=== PATIENT | female | born 1950 | race Caucasian/White ===

== ENCOUNTER → 2017-01-04 | Outpatient (CLI) | payer MEDICARE, BC ==
[~2017-01-04] MED LIST: AROM25TA PO; ULTR50TA5 PO; ZOFR4TAB PO
[2017-01-04 13:36] LABS: AUTOMATED NEUTROPHIL # 4.7 TH/MM3 (1.8-7.7); BASOPHIL % 0.5 % (0.0-2.0); EOSINOPHIL % 0.7 % (0.0-4.0); HEMATOCRIT 38.8 % (35.0-46.0); HEMO FLAGS DIFF FINAL; LYMPHOCYTE # 1.4 TH/MM3 (1.0-4.8); MEAN CORPUSCULAR HEMOGLOBIN 31.4 PG (27.0-34.0); MEAN CORPUSCULAR HGB CONC 33.7 % (32.0-36.0); MONO % 5.6 % (0.0-8.0); NEUT % 71.2 % (16.0-70.0); PLATELET COUNT 245 TH/MM3 (150-450); RED BLOOD COUNT 4.17 MIL/MM3 (4.00-5.30); RED CELL DISTRIBUTION WIDTH 12.9 % (11.6-17.2); WHITE BLOOD COUNT 6.6 TH/MM3 (4.0-11.0)
[2017-01-04 13:46] LABS: APTT (PATIENT) 27.3 SEC (24.3-30.1); PROTHROMBIN TIME - PATIENT 10.7 SEC (9.8-11.6)
[2017-01-04 14:09] LABS: ANION GAP 8 MEQ/L (5-15); AST (GOT) 18 U/L (15-37); BLOOD UREA NITROGEN 15 MG/DL (7-18); CHLORIDE 103 MEQ/L (98-107); GLOMERULAR FILTRATION RATE 90 ML/MIN (>89); GLUCOSE,FASTING 84 MG/DL (74-99); SODIUM (NA) 139 MEQ/L (136-145)
[2017-01-04 14:16] LABS: ALKALINE PHOSPHATASE 68 U/L (45-117); ALT (GPT) 26 U/L (10-53); BETA HCG TUMOR MARKER 2 MIU/ML (0-5); TOTAL BILIRUBIN ADULT 0.8 MG/DL (0.2-1.0)
--- NOTE | 2017-01-05 11:52 | EKG ---
Date Performed: 01/04/2017 Time Performed: 13:26:34 PTAGE: 66 years EKG: Sinus rhythm POSSIBLE RIGHT VENTRICULAR CONDUCTION DELAY BORDERLINE ECG NO PREVIOUS TRACING DOCTOR: Surinder Farooq Interpretating Date/Time 01/05/2017 11:49:42
== END ==
LOC: CPRE 12:23
PROVIDERS: ATTEND Obstetrics & Gynecology Gynecologic Oncology
DX: Z01.810 Encounter for preprocedural cardiovascular examination (principal); Z01.811 Encounter for preprocedural respiratory examination; Z01.812 Encounter for preprocedural laboratory examination; R19.09 Other intra-abdominal and pelvic swelling, mass and lump; R94.31 Abnormal electrocardiogram [ECG] [EKG]
CPT/HCPCS: 36415; 80053; 82378; 84702; 85025; 85610; 85730; 93005

== ENCOUNTER 2017-01-11 09:45 | Observation (INO) | payer MEDICARE, BC ==
[~2017-01-11] VITALS: Ht 157.5 cm; Wt 55.3 kg
[2017-01-11] MEDS ORDERED: ZOFR4TAB PO (10:42)
[2017-01-11] MEDS ORDERED: AROM25TA PO (10:46)
[2017-01-11] MEDS ORDERED: HEPARIN SODIUM - SQ 10,000 UNITS/ML VIAL ONE (11:03)
[2017-01-11] MEDS ORDERED: SODIUM CHLORIDE 0.9% INJ 100 ML ONE (11:03)
[2017-01-11] MEDS ORDERED: ceFAZolin INJ 1,000 MG VIAL ONE (11:03)
[2017-01-11] MEDS ORDERED: HEPARIN SODIUM - SQ 10,000 UNITS/ML VIAL SQ SCH (11:45)
[2017-01-11] MEDS ORDERED: CHLORHEXIDINE GLUCONATE 2 % 1 PACK (2 CLOTHS) TOPICAL PRN (11:45)
[2017-01-11] MEDS ORDERED: SODIUM CHLORIDE FLUSH PRN IV FLUSH (11:45)
[2017-01-11] MEDS ORDERED: ceFAZolin 1,000 MG/NS 100 ML IV SCH ×2 (11:45)
[2017-01-11] MEDS ORDERED: POVIDONE IODINE 5% (ANTISEPSIS KIT) 4 APPLICATIONS EACH NARE PRN (11:45)
[2017-01-11] MEDS ORDERED: SODIUM CHLORID 0.9% 500 ML IV PRN (11:45)
[2017-01-11] MEDS ORDERED: METOPROLOL TARTRATE 25 MG TAB PO PRN (11:45)
[2017-01-11] MEDS ORDERED: INSULIN HUMAN REGULAR 1,000 UNITS/10 ML VIAL SQ PRN (11:45)
[2017-01-11] MEDS ORDERED: LACTATED RINGER'S 1000 ML IV PRN (11:45)
[2017-01-11] MEDS ORDERED: ePHEDrine/NS 25 MG/5 ML SYR IV ONE (12:00)
[2017-01-11] MEDS ORDERED: MIDAZOLAM HCL 2 MG/2 ML VIAL IV ONE (12:00)
[2017-01-11] MEDS ORDERED: NORMOSOL R INJ 1,000 ML IV ONE (12:00)
[2017-01-11] MEDS ORDERED: PROPOFOL 200 MG/20 ML AMP IV ONE (12:00)
[2017-01-11] MEDS ORDERED: VECURONIUM BROMIDE 20 MG VIAL IV ONE (12:00)
[2017-01-11] MEDS ORDERED: ONDANSETRON HCL 4 MG/2 ML VIAL IV PUSH ONE (12:00)
[2017-01-11] MEDS ORDERED: ceFAZolin INJ 1,000 MG VIAL IV ONE (12:00)
[2017-01-11] MEDS ORDERED: KETOROLAC TROMETHAMINE 30 MG/ML (IVP) VIAL IV PUSH ONE (12:00)
[2017-01-11] MEDS ORDERED: FAMOTIDINE 20 MG/2 ML VIAL ONE (13:06)
[2017-01-11] MEDS ORDERED: ACETAMINOPHEN 1000 MG/100 ML 100 ML IV ONE (13:06)
[2017-01-11] MEDS ORDERED: HYDROmorphone HCL PF 2 MG/ML VIAL ONE (13:06)
[2017-01-11] MEDS ORDERED: SUGAMMADEX SODIUM 200 MG/2 ML VIAL IV PUSH ONE ×2 (13:06)
[2017-01-11] MEDS ORDERED: LIDOCAINE 1%/EPINEPHrine 1:100,000 SOLN 20 ML VIAL INFIL ONE (16:01)
[2017-01-11] MEDS ORDERED: NON-FORMULARY DRUG (Ondansetron (Zofran) 4 MG) PO PRN (16:30)
[2017-01-11] MEDS ORDERED: LORazepam 0.5 MG TAB PO PRN (16:30)
[2017-01-11] MEDS ORDERED: traMADol HCL 50 MG TAB PO PRN (16:30)
[2017-01-11] MEDS ORDERED: diphenhydrAMINE HCL 25 MG CAP PO PRN (16:30)
[2017-01-11] MEDS ORDERED: SODIUM CHLORIDE 0.9% FLUSH 10 ML FLUSH IV FLUSH PRN (16:30)
[2017-01-11] MEDS ORDERED: DO NOT ADM ANY ANTICOAGULANT DRUGS PRN (16:41)
[2017-01-11] MEDS: D5-1/2 NS + KCL 20 MEQ INJ 1,000 ML IV SCH (17:00)
[2017-01-11 18:00] VITALS: BP 115/63; PULSE 66; RESP 20; TEMP 96.5; O2SAT 99
[2017-01-11] MEDS ORDERED: PILL SPLITTER OTHER PRN (18:15)
[2017-01-11] MEDS ORDERED: ONDANSETRON ODT 4 MG TAB PO PRN (18:30)
[2017-01-11 20:00] VITALS: BP 101/56; PULSE 78; RESP 16; TEMP 96.7; O2SAT 99
[2017-01-11] MEDS: KETOROLAC TROMETHAMINE 30 MG/ML (IVP) VIAL IVP SCH (20:06)
[2017-01-11] MEDS: SODIUM CHLORIDE 0.9% FLUSH 10 ML FLUSH IV FLUSH SCH (21:00)
[2017-01-11] MEDS ORDERED: SODIUM CHLORIDE FLUSH BID IV FLUSH SCH (21:00)
[2017-01-12] VITALS: BP 99/51; PULSE 100; RESP 20; TEMP 96.9; O2SAT 98
[2017-01-12 01:23] VITALS: O2SAT 100
[2017-01-12] MEDS: D5-1/2 NS + KCL 20 MEQ INJ 1,000 ML IV SCH (03:00)
[2017-01-12 04:00] VITALS: BP 99/55; PULSE 89; RESP 18; TEMP 98.2; O2SAT 99
[2017-01-12] MEDS: KETOROLAC TROMETHAMINE 30 MG/ML (IVP) VIAL IVP SCH ×2 (05:50)
[2017-01-12] MEDS ORDERED: ULTR50TA5 PO (07:13)
[2017-01-12 07:19] LABS: AUTOMATED NEUTROPHIL # 10.2 TH/MM3 (1.8-7.7); BASOPHIL % 0.1 % (0.0-2.0); HEMATOCRIT 33.1 % (35.0-46.0); HEMO FLAGS DIFF FINAL; LYMPH % 7.1 % (9.0-44.0); LYMPHOCYTE # 0.9 TH/MM3 (1.0-4.8); MEAN CELL VOLUME 94.6 FL (80.0-100.0); MEAN CORPUSCULAR HEMOGLOBIN 31.7 PG (27.0-34.0); MEAN CORPUSCULAR HGB CONC 33.5 % (32.0-36.0); MONO % 7.2 % (0.0-8.0); NEUT % 85.6 % (16.0-70.0); PLATELET COUNT 184 TH/MM3 (150-450); RED BLOOD COUNT 3.49 MIL/MM3 (4.00-5.30); RED CELL DISTRIBUTION WIDTH 13.2 % (11.6-17.2); WHITE BLOOD COUNT 11.9 TH/MM3 (4.0-11.0)
[2017-01-12 07:37] LABS: POTASSIUM 4.5 MEQ/L (3.5-5.1)
[2017-01-12 08:00] VITALS: BP 98/59; PULSE 79; RESP 18; TEMP 99; O2SAT 100
[2017-01-12] MEDS: SODIUM CHLORIDE 0.9% FLUSH 10 ML FLUSH IV FLUSH SCH (09:00)
[2017-01-12] MEDS ORDERED: EXEMESTANE PO SCH (09:00)
[2017-01-12] MEDS ORDERED: EXEMESTANE 25 MG PO SCH (09:00)
--- NOTE | 2017-01-14 10:58 | MP ---
cc: FARSHAD CAI M.D., KELLY L. MD DATE OF SURGERY: 01/11/2017 PREOPERATIVE DIAGNOSIS: Complex pelvic mass. Thickened endometrial stripe. POSTOPERATIVE DIAGNOSIS: Left ovarian fibrothecoma. Endometrial polyp. PROCEDURE: Robotic-assisted laparoscopic hysterectomy, bilateral salpingo-oophorectomy (with resection of 12 cm left ovarian mass) SURGEON Marsha Negron MD. 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 ANESTHESIA: General endotracheal anesthesia ESTIMATED BLOOD LOSS 75 cc IV FLUIDS 1900 URINE OUTPUT 200 cc HISTORY 66 year-old female who was undergoing a diagnostic evaluation for left leg pain, found on imaging to have approximately 10 cm complex mass thought to be of ovarian origin. She was referred to [employer] [facility] oncology, evaluated and surgery was recommended. Also in her findings are that of a thickened endometrial stripe with no postmenopausal bleeding. She was seen again in the preop holding area where these findings were reviewed. As per hour previous discussion she confirms that irrespective of the pathology of the ovaries, she is in favor of complete hysterectomy to remove the uterus, cervix, old tubes and ovaries. She understands she will be sent for frozen section analysis to determine if staging steps are warranted and these are again reviewed. Questions were answered. She expressed good understanding and agreed to move forward. FINDINGS: The uterine cavity sounded to 7 cm. Right tube and ovary grossly appeared normal. The left ovary now was approximately 12 cm in diameter. It was complex in nature, essentially half fluid component, half solid component, smooth intact capsule on inspection, although there was a small amount of yellow tinged fluid in the cul-de-sac suggesting that there may have been at some point some leak of fluid from this mass. In the peritoneal cavity, the liver diaphragm edges are smooth. The large and small bowel and adjacent mesentery appeared normal. There were no peritoneal implants. No adenopathy. Preliminary pathology of this mass showed it to be a benign mass favoring a fibrothecoma. The endometrium showed a benign endometrial polyp. No evidence of malignancy. DESCRIPTION OF PROCEDURE: The patient taken to the operating room placed in dorsal lithotomy position after general endotracheal anesthesia was administered. Time-out was undertaken. She was identified by sight, recognition, and hospital ID bracelet and the proposed procedure was reviewed and confirmed. She was carefully positioned in padded Jalen stirrups. Her arms were padded and secured to the sides. She was further secured to the operating table with egg crate padding and tape in across chest over the shoulder fashion. All sites were noted be properly aligned with no malalignments or pressure points. She was prepped and draped in sterile fashion, placed in lithotomy position. Cervix was grasped, uterine cavity was sounded. Cervix was dilated. Standard VCare manipulator was inserted and secured in the usual fashion. Saunders catheter placed in the bladder. She was returned to low lithotomy position, change of sterile gloves was undertaken. We completed draping in anticipation of laparoscopy, confirmed that she had an orogastric tube in the stomach on suction. With manual elevation of the abdominal wall and direct laparoscopic visualization, 5 mm cannula was introduced into the left upper quadrant. Carbon dioxide gas was insufflated and an atraumatic entry was confirmed, 10 mm cannula placed in the midline above the umbilicus, 8 mm cannulas placed in the right upper quadrant and left lateral quadrant. The original 5 changed for a 8-mm cannula. Some adhesions in the right lower quadrant were taken down with sharp dissection. She was placed in steep Trendelenburg position. Peritoneal washings were obtained for cytology. Small bowel was folded back on its mesenteric root. Three Ray-Wei sponges were placed around the root of the small bowel mesentery. The robotic system was brought into the operative field attached in the usual fashion. Monopolar scissors, fenestrated bipolar forceps and Prograsp manipulators were placed in arms #1, 2 and 3 respectively and I took my place at the surgeon's console. The right round ligament isolated, cauterized, transected. The anterior and posterior leafs of the broad ligament were opened. The right ureter was identified. The right infundibulopelvic ligament was isolated. The intervening peritoneum was opened. The infundibulopelvic ligament was isolated to the level of the pelvic brim, was cauterized and transected. Posterior peritoneum opened along the right side of the uterus and cervix. The right vesicouterine peritoneum was dissected off the lower uterine segment and cervix. The right uterine vessels were skeletonized, cauterized and transected as were the cardinal, paracervical and uterosacral ligaments. Attention was directed toward the left side. The left round ligament was isolated, cauterized, transected. The anterior and posterior leafs of the broad ligament were opened. Retroperitoneal dissection was carried out. The left ureter was identified. A window was made in the peritoneum just below the left utero-ovarian ligament and dissection was carried from distal to proximal just below the infundibulopelvic ligament opening the peritoneum elevating the infundibulopelvic ligament and retracting the ureter posteriorly. The left infundibulopelvic ligament was cauterized thoroughly and transected and the left utero-ovarian ligament were cauterized and transected, the large mass from the uterus, placed in the abdomen for later retrieval. Posterior peritoneum dissected on the left side of the uterus and cervix and the left vesicouterine peritoneum was dissected off the lower segment and cervix. The left uterine vessels were skeletonized isolated, cauterized and transected as were the cardinal, paracervical and uterosacral ligament. Colpotomy was performed the cervix from the upper vagina and the specimen was removed including uterus, cervix and the attached right tube and ovary. Then a 15 cm EndoCatch bag was used to capture the left ovarian mass brought down to the pelvis. Transvaginally the fluid component was drained which reduced the size significantly and the remainder of the mass was able to be pulled out intact contained within the bag transvaginally and a pneumo-occluder balloon was placed in the vagina to maintain pneumoperitoneum. Instruments one and three exchanged for needle drivers as 0 Vicryl suture was introduced. The vaginal cuff was closed starting at the left corner, full-thickness closure incorporating the posterior uterosacral ligament, posterior peritoneum, tied via instrument tie. The closure was held on countertraction as a running full-thickness continuous closure was carried across the vaginal apex to the contralateral corner where it was similarly fixed and secured tied via instrument tie. The needle was cut and removed. The pelvis was thoroughly irrigated. All sites noted be hemostatic. The integrity of the bladder was checked by visual inspection. There was a good margin between the bladder edge and the vaginal cuff suture line. Good peristalsis of ureters bilaterally. The preliminary path came back benign. It was felt that all reasonable surgical objectives had been completed so the robotic instruments were removed. The robotic system was disengaged from the operative field and I reentered the bedside under sterile condition. Each of the three Ray-Wei sponges that were placed in the peritoneal cavity were now removed through the 12-mm cannula. There were inspected noted to be removed in their entirety. There were no remaining foreign objects in the peritoneal cavity. Preliminary counts were correct. The 12-mm fascial defect was closed with interrupted 0 Vicryl sutures, tired securely, rendered the fascia completely airtight and hemostatic. The remaining cannulas were withdrawn, 3-0 Vicryl subcutaneous, 3-0 Vicryl subcuticular and Steri-Strips used to close the skin incisions. She was placed in lithotomy position. Inspection confirmed that the vaginal cuff was well-supported, suture line hemostatic. There were no vaginal lacerations. No remaining foreign objects in the vagina and final counts were correct. She was returned to dorsal supine position and was pending reversal of anesthesia when I left the operating room to precede her to the Post Anesthesia Care Unit. MD LYNDA Gardner/SARI /7:20 AM /10:24 AM
--- NOTE | 2017-01-17 07:35 | MD ---
cc: FARSHAD CAI M.D., KELLY L. MD ADMISSION DATE: 01/11/2017 DISCHARGE DATE: 01/12/2017 PROCEDURE 01/11/2017 - Robotic-assisted laparoscopic hysterectomy, bilateral salpingo-oophorectomy (with resection of 12 cm left ovarian mass). Preliminary Pathology - Left ovarian fibrothecoma. HOSPITAL COURSE She did well during the early postop period. She remained afebrile and hemodynamically stable, pain adequately controlled, adequate oral intake. Ins and outs 2480/850. Labs pending. PHYSICAL EXAMINATION GENERAL: Alert and oriented x3. LUNGS: Clear except for mild basilar rales. CARDIOVASCULAR: Regular rate and rhythm. ABDOMEN: Soft. Incision is clean and dry. 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 EXTREMITIES: Nontender. ASSESSMENT Postop day #1, doing well. Findings at the time of surgery, preliminary pathology, activities and restrictions were discussed. Questions were asked and answered. She expressed good understanding. PLAN 1. Anticipate she will meet criteria for discharge to home. 2. She is to contact our office to schedule follow up in 2 weeks. 3. She is to resume prior medications. 4. She will have a prescription for tramadol for pain. 5. She is to contact our office between now and the time of scheduled followup should she have any questions or problems. Marsha Negron MD KM/BRITNI /7:17 AM /7:25 AM
== END 2017-01-12 10:56 | disposition home or self-care (01) ==
LOC: HSDC 09:45 → HSDI 16:22 → HOCB 17:58
PROVIDERS: ADMIT Obstetrics & Gynecology Gynecologic Oncology; ATTEND Obstetrics & Gynecology Gynecologic Oncology
DX: D27.1 Benign neoplasm of left ovary (principal); N84.0 Polyp of corpus uteri; D25.0 Submucous leiomyoma of uterus; N83.9 Noninflammatory disorder of ovary, fallopian tube and broad ligament, unspecified
CPT/HCPCS: 00840; 58552; 80048; 85025; 86850; 86900; 86901; 88307; 88331; 96361; 96374; 96376; G0378; J0131; J0690; J1170; J1644; J1885; J2250; J2405; J3010; J3480; J7120; 88112; 88329